=== PATIENT | male | born 1980 ===

== ENCOUNTER 2021-08-16 13:26 | Emergency (ER) | payer OTHER ==
[~2021-08-16] VITALS: Ht 182.9 cm; Wt 81.6 kg
[2021-08-16 14:32] VITALS: BP 116/36
== END 2021-08-16 14:37 ==
LOC: ER 13:26 → EDBD 13:26 → ER 14:37
DX: R41.82 Altered mental status, unspecified (principal); F15.10 Other stimulant abuse, uncomplicated
CPT/HCPCS: 70450